=== PATIENT | female | born 1955 | race Asian ===

== ENCOUNTER → 2016-06-13 | Outpatient (CLI) | payer BC ==
[~2016-06-13] MED LIST: ANT25 PO; EPP3/2 IM; PRT40 PO
== END | disposition home or self-care (01) ==
LOC: C.MAMM 14:44
PROVIDERS: ATTEND Family Medicine
DX: M81.0 Age-related osteoporosis without current pathological fracture (principal); M85.89 Other specified disorders of bone density and structure, multiple sites

== ENCOUNTER → 2016-06-27 | Outpatient (CLI) | payer BC ==
--- NOTE | 2016-06-27 13:18 | DIAGNOSTIC IMAGING REPORT ---
THYROID ULTRASOUND HISTORY: E04.1 Solitary thyroid [id number] Enlarged lymph [id number] COMPARISON: Thyroid ultrasound 08/03/2006. FINDINGS: Right lobe: 3.9 x 1.4 x 1.3 cm. No nodules. Left lobe: 4.6 x 1.3 x 1.3 cm. Stable solid 1.2 x 0.8 cm nodule within the upper pole. Isthmus: 2 mm in thickness. No nodules. Miscellaneous: No sonographic abnormality within the right submandibular soft tissues. IMPRESSION: Stable solid 1.2 x 0.8 cm left thyroid nodule. No new nodules identified. Electronically signed by: Jonel Beckman M.D. 06/27/2016 1:16 PM Dictated Date/Time: 06/27/2016 1:14 PM
== END | disposition home or self-care (01) ==
LOC: C.ULTR 11:43
PROVIDERS: ATTEND Family Medicine
DX: R59.9 Enlarged lymph nodes, unspecified (principal); E04.1 Nontoxic single thyroid nodule

== ENCOUNTER → 2016-07-13 | Outpatient (CLI) | payer BC ==
[~2016-07-13] MED LIST changes: +GADAVIST IV PRN
--- NOTE | 2016-07-13 19:07 | DIAGNOSTIC IMAGING REPORT ---
MRI face/soft tissue neck ORBIT/FACE/NECK COMBO CLINICAL HISTORY: R22.1 Lump in neck PATIENT WITH COMPLAINTS OF RIGHT NECK MASS IN mass TECHNIQUE: Multiaxial MRI acquisition COMPARISON STUDY: Ultrasound dated 06/27/2016 FINDINGS: Stable 1 cm left thyroid nodule. No evidence for abnormal mass or collection within the soft tissue neck. Soft tissue marker is placed over a normal right submandibular gland. All major salivary glands are unremarkable. No evidence for abnormal postcontrast enhancement. No significant cervical adenopathy. IMPRESSION: 1. The palpable soft tissue nodule appears to relate to a normal right submandibular gland. 2. No evidence for abnormal mass or collection. 3. Stable 1 cm previous described 1 cm left thyroid nodule. Electronically signed by: Sid Bhagat M.D. 07/13/2016 7:06 PM Dictated Date/Time: 07/13/2016 7:04 PM
== END | disposition home or self-care (01) ==
LOC: C.MRI 17:48
DX: R22.1 Localized swelling, mass and lump, neck (principal)

== ENCOUNTER → 2016-08-08 | Outpatient (CLI) | payer BC ==
[~2016-08-08] MED LIST changes: -GADAVIST IV PRN
[2016-08-08 09:49] LABS: CREATININE 0.61 mg/dl (0.60-1.20)
[2016-08-08 10:19] LABS: CALCIUM URINE 7.1 mg/dl
[2016-08-11 05:03] LABS: ANTI-CENTROMERE AB <1.0 NEG AI (<1.0 NEG); ANTI-SS-A <1.0 NEG AI (<1.0 NEG); ANTI-SS-B <1.0 NEG AI (<1.0 NEG); DNA ds CRITHIDIA NEGATIVE (NEGATIVE); Sm Antibody <1.0 NEG AI (<1.0 NEG)
== END | disposition home or self-care (01) ==
LOC: C.LAB1850 08:18
PROVIDERS: ATTEND Internal Medicine Rheumatology
DX: M81.0 Age-related osteoporosis without current pathological fracture (principal); E55.9 Vitamin D deficiency, unspecified; K31.84 Gastroparesis

== ENCOUNTER → 2017-10-03 | Day surgery (SDC) | payer BC, OTHER ==
[2017-09-26 09:01] VITALS: BMI 18.0
[~2017-10-03] VITALS: Ht 154.9 cm; Wt 43.2 kg
[~2017-10-03] MED LIST changes: -ANT25 PO; +ATOR10TA82 PO; +CALC1TAB9 PO; +CHOL2000 PO; +FLUT0.15 INTNAS; +LIDOCAINE HCL 2% 2 ML VIAL (20MG/ML) ONE; +MECL1TAB42 PO; +MIDAZOLAM HCL 1 MG/ML 2ML VIAL ONE; +ONDANSETRON INJ 2 MG/ML 2 ML VIAL ONE; +PROPOFOL IV EMULSION 10 MG/ML 20 ML VIAL ONE; -PRT40 PO; +PTDOPS OP; +SODIUM CHLORIDE 0.9% 500ML 500 ML IV ONE; +VITACAP26 PO
[2017-10-03 11:05] VITALS: Ht 154.9 cm; Wt 43.2 kg
--- NOTE | 2017-10-03 12:11 | Endo History and Physical ---
History & Physical Date of Service: Oct 03, 2017. Chief Complaint: SCREENING INTESTINAL METAPLASIA Referring Physician: DR BROWNE History of Present Illness 62 yo female who presents for screening colonoscopy and EGD secondary to intestinal metaplasia. Past Surgical History Hx Cardiac Surgery: No Hx Internal Defibrillator: No Hx Pacemaker: No Hx Abdominal Surgery: No Hx of Implantable Prosthesis: No Hx Post-Op Nausea and Vomiting: No Hx Cancer Surgery: No Hx Thoracic Surgery: No Hx Orthopedic: No Hx Urinary Tract Surgery: Yes ([facility]) Family History None Social History Smoking Status: Never Smoker Hx Substance Use: No Hx Alcohol Use: Yes (OCCASIONAL BEER) Allergies Coded Allergies: [place] (Verified Allergy, Unknown, ITCHING, 10/03/17) Amoxicillin (Verified Allergy, Unknown, GI UPSET SEVERE, 10/03/17) NO KNOWN DRUG ALLERGIES (Verified Allergy, Unknown, NONE, 10/03/17) Pork (Verified Allergy, Unknown, ITCHING, 10/03/17) Current Medications Reported Home Medications Medications Dose Route/Sig Max Daily Dose Days Date Category Flonase Allergy Relief (Fluticasone Propionate (Nasal)) 50 Mcg/Act Spr 2 Sprays INTNAS PRN 09/26/17 Reported Pataday (Olopatadine Hydrochloride) 37 Drops/2.5 Ml Soln 1 Drops OP PRN 30 09/26/17 Reported Meclizine Hcl 25 Mg Tab 1 Tab PO TID PRN 10 09/26/17 Reported Epipen (Epinephrine) 0.3 Mg/0.3 Ml Inj 0.3 Mg IM UD 09/26/17 Reported Vitamin C (Vitamins C & E) 1 Cap Cap 1 Tab PO PRN 09/26/17 Reported Citracal + D3 Maximum (Calcium Citrate-Vitamin D) 1 Tab Tab 1 Tab PO QAM 09/26/17 Reported Vitamin D3 (Cholecalciferol) 2,000 Unit Cap 1 Cap PO QAM 90 09/26/17 Reported Lipitor (Atorvastatin Calcium) 10 Mg Tab 10 Mg PO QPM 09/26/17 Reported Vital Signs Weight (Kilograms): 43.18 Height (Feet): 5 Height (Inches): 1 Date Time Temp Pulse Resp B/P (MAP) Pulse Ox O2 Delivery O2 Flow Rate FiO2 10/03/17 11:15 36.6 59 16 123/77 (92) 98 Room Air Physical Exam General Appearance: WD/WN, no apparent distress Respiratory/Chest: Auscultation: breath sounds normal Cardiovascular: Heart Auscultation: RRR Abdomen: Bowel Sounds: normal Inspection & Palpation: soft, non-distended, no tenderness, guarding & rebound Assessment and Plan Assessment: 62 yo CF who presents for screening colonoscopy and EGD secondary to intestinal metaplasia. Plan: Proceed with EGD and colonoscopy.
--- NOTE | 2017-10-03 12:52 | GI REPORT ---
Patient Name: Nicolas Grimes Procedure Date: 10/03/2017 11:38 AM Date of : 1955 Admit Type: Outpatient Age: 62 Gender: Female Attending MD: Ubaldo Corrales DO Procedure: Upper GI endoscopy Providers: Ubaldo Corrales DO Referring MD: Rebecca Green Md Indications: Intestinal metaplasia of the stomach Medicines: Monitored Anesthesia Care Complications: No immediate complications. Estimated Blood Loss: Estimated blood loss: none. Procedure: Pre-Anesthesia Assessment: - Prior to the procedure, a History and Physical was performed, and patient medications and allergies were reviewed. The patient's tolerance of previous anesthesia was also reviewed. The risks and benefits of the procedure and the sedation options and risks were discussed with the patient. All questions were answered, and informed consent was obtained. Prior Anticoagulants: The patient has taken no previous anticoagulant or antiplatelet agents. ASA Grade Assessment: II - A patient with mild systemic disease. After reviewing the risks and benefits, the patient was deemed in satisfactory condition to undergo the procedure. After obtaining informed consent, the endoscope was passed under direct vision. Throughout the procedure, the patient's blood pressure, pulse, and oxygen saturations were monitored continuously. The scope was introduced through the mouth, and advanced to the second part of duodenum. The upper GI endoscopy was accomplished without difficulty. The patient tolerated the procedure well. Findings: The esophagus was normal. [Site] was. Biopsies were taken with a cold forceps for histology. The examined duodenum was normal. Impression: - Normal esophagus. - Normal stomach. Biopsied. - Normal examined duodenum. Recommendation: - Resume previous diet. - Continue present medications. - Await pathology results. - Return to primary care physician as previously scheduled. Ubaldo Corrales DO 10/03/2017 12:51:55 PM This report has been signed electronically. Note Initiated On: 10/03/2017 11:38 AM Number of Addenda: 0 I attest to the content of the Intraoperative Record and orders documented therein, exceptions below {[id number]}
--- NOTE | 2017-10-03 12:59 | Discharge Instructions ---
Endoscopy Patient Instructions Date / Procedure(s) Performed Oct 03, 2017. EGD Allergy Information Coded Allergies: [place] (Verified Allergy, Unknown, ITCHING, 10/03/17) Amoxicillin (Verified Allergy, Unknown, GI UPSET SEVERE, 10/03/17) NO KNOWN DRUG ALLERGIES (Verified Allergy, Unknown, NONE, 10/03/17) Pork (Verified Allergy, Unknown, ITCHING, 10/03/17) Discharge Date / Findings Oct 03, 2017. EGD: Gastric antrum biopsies Colonoscopy: Colon polyp and Internal hemorrhoids Medication Instructions OK to resume all medications today as prescribed Reported Home Medications Medications Dose Route/Sig Max Daily Dose Days Date Category Flonase Allergy Relief (Fluticasone Propionate (Nasal)) 50 Mcg/Act Spr 2 Sprays INTNAS PRN 09/26/17 Reported Pataday (Olopatadine Hydrochloride) 37 Drops/2.5 Ml Soln 1 Drops OP PRN 30 09/26/17 Reported Meclizine Hcl 25 Mg Tab 1 Tab PO TID PRN 10 09/26/17 Reported Epipen (Epinephrine) 0.3 Mg/0.3 Ml Inj 0.3 Mg IM UD 09/26/17 Reported Vitamin C (Vitamins C & E) 1 Cap Cap 1 Tab PO PRN 09/26/17 Reported Citracal + D3 Maximum (Calcium Citrate-Vitamin D) 1 Tab Tab 1 Tab PO QAM 09/26/17 Reported Vitamin D3 (Cholecalciferol) 2,000 Unit Cap 1 Cap PO QAM 90 09/26/17 Reported Lipitor (Atorvastatin Calcium) 10 Mg Tab 10 Mg PO QPM 09/26/17 Reported Provider Instructions Activity Restrictions - No exercising or heavy lifting for 24 hours. - Do not drink alcohol the day of the procedure. - Do not drive a car or operate machinery until the day after the procedure. - Do not make any important decisions or sign important papers in 24 hours after the procedure. Following Day: - Return to full activity which may include returning to work/school. Diet Start your diet with liquids and light foods (jello, soup, juice, toast). Then eat your usual diet if not nauseated. Treatment For Common After Affects For mild abdominal pain, bloating, or excessive gas: - Rest - Eat lightly - Lie on right side Follow-Up Information Follow-up with DR BROWNE as scheduled Anesthesia Information What You Should Know You have had a procedure that required some medicine to reduce anxiety and discomfort. This treatment is called moderate sedation. After receiving the treatment, you may be sleepy, but you will be able to breathe on your own. The effects of the treatment may last for several hours. Follow these instructions along with Activity/Diet recommendations noted above: * Do NOT do anything where dizziness or clumsiness would be dangerous. * Rest quietly at home today, then you can be up and about tomorrow. * Have a responsible person stay with you the rest of today. * You may have had an I.V. today. If so, you may take the dressing off later today. Recommendations Call your doctor if: * Trouble breathing * Continuous vomiting for more than 24 hours * Temperature above 101 degrees * Severe abdominal pain or bloating * Pain not relieved by pain medicine ordered * There is increased drainage or redness from any incision * A large amount of rectal bleeding greater than 2-3 tablespoons. (If you had a polyp/s removed or have hemorrhoids, a small amount of blood - from the rectum is to be expected.) * You have any unanswered questions or concerns. IN THE EVENT OF A SERIOUS EMERGENCY, GO TO THE NEAREST EMERGENCY ROOM Your discharge instructions were prepared by provider Ubaldo Corrales. Patient Instructions Signature Page Nicolas Grimes Patient (or Guardian) Signature/Date: I have read and understand the instructions given to me by my caregivers. Caregiver/RN/Doctor Signature/Date: The above-named patient and/or guardian has received patient instructions on this date. + Original Patient Signature Page (only) stays with chart. Please make copy for patient.
--- NOTE | 2017-10-03 12:59 | GI REPORT ---
Patient Name: Nicolas Grimes Procedure Date: 10/03/2017 11:41 AM Date of : 1955 Admit Type: Outpatient Age: 62 Gender: Female Attending MD: Ubaldo Corrales DO Procedure: Colonoscopy Providers: Ubaldo Corrales DO Referring MD: Rebecca Green Md Indications: Screening for colorectal malignant neoplasm Medicines: Monitored Anesthesia Care Complications: No immediate complications. Estimated Blood Loss: Estimated blood loss: none. Procedure: Pre-Anesthesia Assessment: - Prior to the procedure, a History and Physical was performed, and patient medications and allergies were reviewed. The patient's tolerance of previous anesthesia was also reviewed. The risks and benefits of the procedure and the sedation options and risks were discussed with the patient. All questions were answered, and informed consent was obtained. Prior Anticoagulants: The patient has taken no previous anticoagulant or antiplatelet agents. ASA Grade Assessment: II - A patient with mild systemic disease. After reviewing the risks and benefits, the patient was deemed in satisfactory condition to undergo the procedure. After I obtained informed consent, the scope was passed under direct vision. Throughout the procedure, the patient's blood pressure, pulse, and oxygen saturations were monitored continuously. The On-site loaner was introduced through the anus and advanced to the terminal ileum. The colonoscopy was performed without difficulty. The patient tolerated the procedure well. The quality of the bowel preparation was good. The terminal ileum, ileocecal valve, appendiceal orifice, and rectum were photographed. Findings: The perianal and digital rectal examinations were normal. A 4 mm polyp was found in the transverse colon. The polyp was sessile. The polyp was removed with a cold snare. Resection and retrieval were complete. Non-bleeding internal hemorrhoids were found during retroflexion. The hemorrhoids were small. Impression: - One 4 mm polyp in the transverse colon, removed with a cold snare. Resected and retrieved. - Non-bleeding internal hemorrhoids. Recommendation: - Continue present medications. - Resume previous diet. - Repeat colonoscopy for surveillance based on pathology results. - Return to primary care physician as previously scheduled. Ubaldo Corrales DO 10/03/2017 12:58:37 PM This report has been signed electronically. Note Initiated On: 10/03/2017 11:41 AM Number of Addenda: 0 I attest to the content of the Intraoperative Record and orders documented therein, exceptions below {[id number]}
[2017-10-03 13:24] VITALS: BP 117/70; PULSE 53; O2SAT 100
--- NOTE | 2017-10-03 14:08 | Anesthesiology Progress Note ---
Anesthesia Post Op Note Date & Time Oct 03, 2017 at 14:08 Vital Signs Vital Signs Past 12 Hours Date Time Temp Pulse Resp B/P (MAP) Pulse Ox O2 Delivery O2 Flow Rate FiO2 10/03/17 13:24 53 16 117/70 (86) 100 Room Air 10/03/17 13:08 57 16 112/66 (81) 100 Room Air 10/03/17 12:53 60 16 91/58 (69) 100 Room Air 10/03/17 11:15 36.6 59 16 123/77 (92) 98 Room Air Notes Mental Status: alert / awake / arousable, participated in evaluation Pt Amnestic to Procedure: Yes Nausea / Vomiting: adequately controlled Pain: adequately controlled Airway Patency, RR, SpO2: stable & adequate BP & HR: stable & adequate Hydration State: stable & adequate Anesthetic Complications: no major complications apparent
== END | disposition home or self-care (01) ==
LOC: C.GI 10:56
PROVIDERS: ATTEND Internal Medicine
DX: Z12.11 Encounter for screening for malignant neoplasm of colon (principal); K29.50 Unspecified chronic gastritis without bleeding; D12.3 Benign neoplasm of transverse colon; K64.8 Other hemorrhoids; K31.89 Other diseases of stomach and duodenum; Z88.0 Allergy status to penicillin; Z88.1 Allergy status to other antibiotic agents; Z91.018 Allergy to other foods; Z79.899 Other long term (current) drug therapy